=== PATIENT | female | born 1990 | race Caucasian/White ===

== ENCOUNTER 2020-02-15 17:03 | Inpatient (IN) | payer OTHER ==
[~2020-02-15] VITALS: Ht 167.6 cm; Wt 77.3 kg
[2020-02-15] VITALS (10 sets, daily range): BP systolic 105–120; BP diastolic 66–79; PULSE 61–80; TEMP 97.9–98.3
--- NOTE | 2020-02-15 17:30 | NUR ---
1710- Pt arrives on unit with complaints of contactions every 6mins. Pt denies VB, LOF. +FM. 1711- EFM and TOCO on and tracing. VSS.
[2020-02-15] MEDS ORDERED: PRENATAL TABLET PO (17:50)
[2020-02-15 18:10] LABS: BASO % 0.2 % (0.0-2.0); EOS # 0.1 (0.0-0.7); EOS % 0.8 % (0-4.0); GRAN # 6.7 (1.4-6.5); GRAN % 75.5 % (42.2-75.2); HEMATOCRIT 37.5 % (37.0-47.0); HEMOGLOBIN 12.6 g/dl (12.5-16.0); LYMPH # 1.6 (1.2-3.4); LYMPH % 17.7 % (20.0-51.0); MEAN CELL VOLUME 90 fl (80.0-100.0); MEAN CORPUSCULAR HEMOGLOBIN 30 pg (27.0-31.0); MEAN CORPUSCULAR HGB CONC 34 g/dl (33.0-37.0); MEAN PLATELET VOLUME 12.6 fl (7.4-10.4); MONO # 0.5 (0.1-0.6); PLATELET COUNT 163 K/mm3 (130-400); RED BLOOD COUNT 4.16 M/mm3 (4.10-5.30); REDCELL DISTRIBUTION WIDTH-CV 14.6 % (11.5-14.5)
--- NOTE | 2020-02-15 19:00 | NUR ---
183- Bedside report from KUSUM Sheehan. plan reviewed. 1849- See Physician Notification. 1899- SVE /2. Patient denies want for AROM and wants to labor naturally. EFM and TOCO off for voiding and ambulation. 1909- See Physician Notification. 1919- MD Francisco on unit.
--- NOTE | 2020-02-15 21:00 | NUR ---
[id number] EFM and TOCO for intermittent monitoring. Patient up to void and on birthing ball. 1954- EFM and TOCO on and tracing. Plan of care discussed. 2014- EFM and TOCO off. Patient standing at edge of bed. 2024- Patient breathing through contractions and states "somethings different" and reports increasing pressure. Patient helped back into bed. MD at bedside reviewing plan of care with patient. Patient declines SVE. RN remains at bedside. 2031- RN at bedside. Patient states "I'm pushing". RN called out for who is on unit at Labor Nurses desk. MD to room. Labor room set up for imminent delivery. 2034- SROM. Moderate amount of clear, odorless fluid noted. Patient's body continues to push naturally with effort. 2037- of viable baby boy. NB to mother's chest. NB care assumed by KUSUM Pollard. Cord clamped and cut. Cord blood obtained. 2044- Spontaneous delivery of placenta. Pitocin infusing at 333 ml/hr per protocol. Fundus massaged to firm by RN. Large amount of trailing membranes removed manually by MD. First degree perineal laceration repaired by MD. No local anesthetic used. Pericare provided. Ice pack applied. 2044- PP Recovery. 2099- Fundus firm with minimal amount of lochia noted.
--- NOTE | 2020-02-15 22:45 | NUR ---
Fundus boggy. Fundus massaged to firm with small amount of lochia and urine noted. Patient ambulatory to restroom to attempt to void. Unable to void at this time. Pericare provided. Clean gown on. Patient ambulatory to PP room without difficulty. PP Education folder explained. Questions encouraged and answered. Plan of care discussed.
[2020-02-16] VITALS: BP 109/74; PULSE 72; TEMP 98.7
--- NOTE | 2020-02-16 | NUR ---
Patient up to restroom. Moderate amount of bleeding noted on ice pack with fifty-cent piece size clot noted. Fundus firm, D-1.
--- NOTE | 2020-02-16 01:00 | NUR ---
0115- Report given to KUSUM Springer.
[2020-02-16 03:40] VITALS: BP 95/64; PULSE 75; TEMP 98.5
[2020-02-16 08:32] VITALS: BP 93/57; PULSE 74; TEMP 98.5
[2020-02-16] MEDS ORDERED: IBU800 M1 PO (09:44)
[2020-02-16 11:30] VITALS: BP 95/61; PULSE 74; TEMP 98.5
[2020-02-16 16:30] VITALS: BP 91/60; PULSE 81; TEMP 98.9
[2020-02-16 20:05] VITALS: BP 93/64; PULSE 69; TEMP 97.9
[2020-02-17 07:30] VITALS: BP 92/59; PULSE 71; TEMP 97.6
[2020-02-17 16:26] VITALS: BP 105/66; PULSE 79; TEMP 97.8
--- NOTE | 2020-02-17 21:00 | NUR ---
Discharge instructions reviewed with pt. Questions invited andanswered. Ambulatory off unit.
== END 2020-02-17 21:00 | disposition home or self-care (01) | DRG 807 ==
LOC: LDRO 17:03 → LDR 17:10 → OB 17:10 → LDRO 03-08 06:51
PROVIDERS: Obstetrics & Gynecology; ADMIT Obstetrics & Gynecology
PROC: 10E0XZZ Delivery of Products of Conception, External Approach (ICD-10-PCS; principal; 2020-02-15)
PROC: 0HQ9XZZ Repair Perineum Skin, External Approach (ICD-10-PCS; 2020-02-15)
DX: O99.824 Streptococcus B carrier state complicating childbirth (principal); Z37.0 Single live birth; O23.43 Unspecified infection of urinary tract in pregnancy, third trimester; O70.0 First degree perineal laceration during delivery; Z3A.39 39 weeks gestation of pregnancy
CPT/HCPCS: J2210; J2540; J2590; J7120